=== PATIENT | female | born 1960 | race Caucasian/White ===

== ENCOUNTER 2022-03-08 14:48 | Outpatient (CLI) | payer MEDICARE, MEDICAID ==
[~2022-03-08 14:48] MED LIST: ACET-2119 PO; ASCO-139 PO; ASPI-1265 PO; BUSP5TAB3 PO; CALC-937 PO; CLOP75TA34 PO; DICL100G30 TOP; DOCUSATE PO; FAMO20TA10 PO; GLUC-95 PO; GOLO PO; HYDR28CR14 TOP; INSU300I3 SQ; LEVO200T8 PO; LEVO5TAB13 PO; LOSA50TA64 PO; MAGN500C4 PO; METF-438 PO; MILN100T PO; Melatonin PO; NOVLG SQ; NYSTATIN CREAM TOP; OMEP40CA21 PO; ONDA4TAB12 PO; ROSU20TA31 PO; SENN-145 PO; SIME80TA15 PO; TRAM50TA2 PO; [UNRECOGNIZED DRUG - OTHER] PO
[2022-03-08] MEDS ORDERED: iohexol 350MG/ML 100ml bottle IV ONE (15:01)
== END 2022-03-08 23:59 | disposition home or self-care (01) ==
LOC: RAD 14:48
PROVIDERS: ATTEND Surgery
DX: I65.23 Occlusion and stenosis of bilateral carotid arteries (principal)
CPT/HCPCS: 70498; J3490; Q9967

== ENCOUNTER 2023-09-26 11:16 | Day surgery (SDC) | payer MEDICARE, MEDICAID ==
[2023-09-21 10:02] LABS: BASOPHILS % (AUTO) 0.4 % (0-1); EOSINOPHILS # (AUTO) 0.1 X10'3 (0-0.9); EOSINOPHILS % (AUTO) 1.5 % (0-6); HEMATOCRIT 36.2 % (35.0-45.0); HEMOGLOBIN 12.4 g/dl (12.0-16.0); LYMPHOCYTES # (AUTO) 1.6 X10'3 (1.1-4.8); LYMPHOCYTES % (AUTO) 21.6 % (21-51); MEAN CORPUSCULAR HEMOGLOBIN 32.4 PG (27.0-31.0); MEAN CORPUSCULAR HGB CONC 34.3 g/dL (33.0-36.5); MEAN CORPUSCULAR VOLUME 94.5 FL (78-98); MEAN PLATELET VOLUME 7.6 FL (7.4-10.4); MONOCYTES # (AUTO) 0.6 X10'3 (0-0.9); NEUTROPHILS # (AUTO) 5.1 X10'3 (1.8-7.7); NEUTROPHILS % (AUTO) 68.5 % (42-75); PLATELET COUNT 261 X10'3 (140-440); RED BLOOD COUNT 3.83 X10'6 (4.20-5.60); RED CELL DISTRIBUTION WIDTH 14.5 % (11.5-14.5); WHITE BLOOD COUNT 7.5 X10'3 (4.5-11.0)
[2023-09-21 10:22] LABS: APTT 28 SECONDS (22-32); INR 0.9 INR; PROTHROMBIN TIME 10.2 SECONDS (9.0-12.0)
[2023-09-21 10:25] LABS: ALBUMIN 3.8 G/DL (3.4-5.0); ANION GAP 9 (8-16); BLOOD UREA NITROGEN 15 MG/DL (7-18); BUN/CREATININE RATIO 17.2 (10.0-20.0); CALCIUM 9.7 MG/DL (8.5-10.1); CHLORIDE 98 MMOL/L (99-107); CREATININE 0.87 MG/DL (0.40-0.90); GLUCOSE 104 MG/DL (70-104); POTASSIUM 4.2 MMOL/L (3.5-5.1); SODIUM 132 MMOL/L (135-145); TOTAL CARBON DIOXIDE 25.2 MMOL/L (24-32); eGFR 66 ML/MIN
[2023-09-26] VITALS (10 sets, daily range): BP systolic 95–164; BP diastolic 45–72; PULSE 58–64; RESP 12–18; TEMP 98.3; O2SAT 97–100
[~2023-09-26] VITALS: Ht 167.6 cm; Wt 120.9 kg
[~2023-09-26 11:16] MED LIST changes: -DICL100G30 TOP; +DICL100G59 TOP; +ONDA-243 PO; -ONDA4TAB12 PO; -ROSU20TA31 PO; +ROSU20TA73 PO; -SENN-145 PO; +SENN-367 PO
[2023-09-26] MEDS ORDERED: normal saline 1,000 ML IV SCH (11:35)
[2023-09-26] MEDS ORDERED: diphenhydrAMINE 25mg capsule PO PRN (11:35)
[2023-09-26] MEDS ORDERED: LORazepam 0.5 MG tablet PO PRN (11:35)
[2023-09-26] MEDS ORDERED: MONT-40 PO (12:03)
[2023-09-26] MEDS ORDERED: ADAL40PE5 SQ (12:03)
[2023-09-26] MEDS ORDERED: METH2.5T55 PO (12:03)
[2023-09-26] MEDS ORDERED: BIOT10006 PO (12:03)
[2023-09-26] MEDS ORDERED: TIRZ7.5P SQ (12:03)
[2023-09-26] MEDS ORDERED: ESTR1VAG10 VG (12:03)
[2023-09-26] MEDS ORDERED: ROSU40TA71 PO (12:03)
[2023-09-26] MEDS ORDERED: CHOL20002 PO (12:03)
[2023-09-26] MEDS ORDERED: HYDR12.55 PO (12:03)
[2023-09-26] MEDS ORDERED: CYAN100087 PO (12:03)
[2023-09-26] MEDS ORDERED: verapamil 2.5 mg/ml inj IV ONE (13:29)
[2023-09-26] MEDS ORDERED: LIDOcaine 1% (10mg/ml) 2ml vial ONE (13:29)
[2023-09-26] MEDS ORDERED: heparin 1,000unit/ml 10ml vial 10 ML ONE (13:30)
[2023-09-26] MEDS ORDERED: iohexol 350MG/ML 100ml bottle IV ONE ×2 (13:30→15:44)
[2023-09-26] MEDS ORDERED: fentaNYL/PF 50MCG/1 ML 2ML syringe ONE (13:30)
[2023-09-26] MEDS ORDERED: midazolam 1 mg/ML 2ml injection ONE ×3 (13:30→15:25)
[2023-09-26] MEDS ORDERED: aspirin 325mg tablet ONE (16:31)
[2023-09-26] MEDS ORDERED: clopidogrel 300mg tablet ONE (16:31)
[2023-09-26] MEDS ORDERED: CLOP-32 PO (16:59)
== END 2023-09-26 18:35 | disposition home or self-care (01) ==
LOC: SSTAY O 11:16
PROVIDERS: ATTEND Student in an Organized Health Care Education/Training Program
DX: I65.21 Occlusion and stenosis of right carotid artery (principal); I10 Essential (primary) hypertension; I25.10 Atherosclerotic heart disease of native coronary artery without angina pectoris; E11.9 Type 2 diabetes mellitus without complications; E78.00 Pure hypercholesterolemia, unspecified; Z79.899 Other long term (current) drug therapy; Z79.82 Long term (current) use of aspirin; Z79.890 Hormone replacement therapy; Z91.012 Allergy to eggs; Z88.8 Allergy status to other drugs, medicaments and biological substances
CPT/HCPCS: 36222; 36415; 37236; 80048; 85025; 85610; 85730; 93005; 99152; 99153; A6258; A6402; C1725; C1751; C1769; C1876; C1887; C1894; J1644; J2001; J2250; J3010; J3490; J7030; Q9967; Z7610; 36225; 37217; 75625; 75710; 76937

== ENCOUNTER 2024-02-26 10:13 | Outpatient (CLI) | payer MEDICARE, MEDICAID ==
[2024-02-16 11:23] LABS: BASOPHILS % (AUTO) 0.6 % (0-1); EOSINOPHILS # (AUTO) 0.2 X10'3 (0-0.9); HEMATOCRIT 33.8 % (35.0-45.0); HEMOGLOBIN 11.9 g/dl (12.0-16.0); LYMPHOCYTES # (AUTO) 1.4 X10'3 (1.1-4.8); LYMPHOCYTES % (AUTO) 25.8 % (21-51); MEAN CORPUSCULAR HEMOGLOBIN 32.2 PG (27.0-31.0); MEAN PLATELET VOLUME 7.3 FL (7.4-10.4); MONOCYTES # (AUTO) 0.5 X10'3 (0-0.9); MONOCYTES % (AUTO) 9.3 % (2-12); NEUTROPHILS # (AUTO) 3.3 X10'3 (1.8-7.7); NEUTROPHILS % (AUTO) 61.3 % (42-75); PLATELET COUNT 232 X10'3 (140-440); RED BLOOD COUNT 3.68 X10'6 (4.20-5.60); RED CELL DISTRIBUTION WIDTH 15.8 % (11.5-14.5); WHITE BLOOD COUNT 5.4 X10'3 (4.5-11.0)
[2024-02-16 11:39] LABS: ALANINE AMINOTRANSFERASE 39 U/L (12-78); ALBUMIN 3.8 G/DL (3.4-5.0); ALBUMIN/GLOBULIN RATIO 1.2 (1.1-1.5); ALKALINE PHOSPHATASE 65 IU/L (46-116); ANION GAP 10 (8-16); ASPARTATE AMINO TRANSFERASE 22 U/L (10-37); BILIRUBIN,TOTAL 0.5 MG/DL (0.1-1.0); BLOOD UREA NITROGEN 17 MG/DL (7-18); CHLORIDE 98 MMOL/L (99-107); CREATININE 0.85 MG/DL (0.40-0.90); GLUCOSE 97 MG/DL (70-104); POTASSIUM 3.9 MMOL/L (3.5-5.1); SODIUM 131 MMOL/L (135-145); TOTAL CARBON DIOXIDE 23.3 MMOL/L (24-32); TOTAL PROTEIN 7.1 G/DL (6.4-8.2); eGFR 68 ML/MIN
[~2024-02-26 10:13] MED LIST changes: +ADAL40PE5 SQ; +BIOT10006 PO; -BUSP5TAB3 PO; -CALC-937 PO; +CHOL20002 PO; +CYAN100087 PO; -DICL100G59 TOP; -DOCUSATE PO; +ESTR1VAG10 VG; -FAMO20TA10 PO; +FOLIC ACID; -GLUC-95 PO; +HYDR12.55 PO; -HYDR28CR14 TOP; -LEVO5TAB13 PO; -MAGN500C4 PO; -METF-438 PO; +METH2.5T55 PO; -MILN100T PO; +MONT-40 PO; -Melatonin PO; -NYSTATIN CREAM TOP; -OMEP40CA21 PO; -ONDA-243 PO; -ROSU20TA73 PO; +ROSU40TA89 PO; +TIRZ7.5P SQ; -TRAM50TA2 PO; -[UNRECOGNIZED DRUG - OTHER] PO
== END 2024-02-26 23:59 | disposition home or self-care (01) ==
LOC: LAB 10:13
PROVIDERS: ATTEND Orthopaedic Surgery Hand Surgery
DX: M79.641 Pain in right hand (principal); M65.341 Trigger finger, right ring finger; M65.321 Trigger finger, right index finger; M65.351 Trigger finger, right little finger; M18.11 Unilateral primary osteoarthritis of first carpometacarpal joint, right hand; F17.210 Nicotine dependence, cigarettes, uncomplicated; E78.5 Hyperlipidemia, unspecified; I25.10 Atherosclerotic heart disease of native coronary artery without angina pectoris; M65.311 Trigger thumb, right thumb; Z01.818 Encounter for other preprocedural examination; Z88.8 Allergy status to other drugs, medicaments and biological substances; Z91.012 Allergy to eggs; M17.11 Unilateral primary osteoarthritis, right knee; M06.9 Rheumatoid arthritis, unspecified; G62.9 Polyneuropathy, unspecified; E66.01 Morbid (severe) obesity due to excess calories; Z98.890 Other specified postprocedural states; Z79.899 Other long term (current) drug therapy
CPT/HCPCS: 36415; 80053; 85025

== ENCOUNTER 2024-03-25 05:34 | Day surgery (SDC) | payer MEDICARE, MEDICAID ==
[2024-03-19 11:55] LABS: BASOPHILS % (AUTO) 0.6 % (0-1); EOSINOPHILS # (AUTO) 0.2 X10'3 (0-0.9); EOSINOPHILS % (AUTO) 2.6 % (0-6); LYMPHOCYTES # (AUTO) 1.4 X10'3 (1.1-4.8); LYMPHOCYTES % (AUTO) 24.3 % (21-51); MEAN CORPUSCULAR HEMOGLOBIN 31.1 PG (27.0-31.0); MEAN CORPUSCULAR HGB CONC 34.1 g/dL (33.0-36.5); MEAN PLATELET VOLUME 7.2 FL (7.4-10.4); MONOCYTES # (AUTO) 0.7 X10'3 (0-0.9); MONOCYTES % (AUTO) 11.6 % (2-12); NEUTROPHILS # (AUTO) 3.6 X10'3 (1.8-7.7); NEUTROPHILS % (AUTO) 60.9 % (42-75); PRE OP HEMATOCRIT 37.4 % (35.0-45.0); PRE OP HEMOGLOBIN 12.8 g/dL (12.0-16.0); PRE OP PLATELET COUNT 242 X10'3 (140-440); PRE OP WHITE BLOOD COUNT 5.9 10'3 (4.8-10.8); RED BLOOD COUNT 4.11 X10'6 (4.20-5.60); RED CELL DISTRIBUTION WIDTH 15.5 % (11.5-14.5)
[2024-03-19 12:25] LABS: ALBUMIN 4.1 G/DL (3.4-5.0); ALKALINE PHOSPHATASE 83 IU/L (46-116); BLOOD UREA NITROGEN 15 MG/DL (7-18); BUN/CREATININE RATIO 20.5 (10.0-20.0); CALCIUM 9.9 MG/DL (8.5-10.1); CHLORIDE 96 MMOL/L (99-107); CREATININE 0.73 MG/DL (0.40-0.90); PRE OP ALT 51 U/L (30-65); PRE OP ANION GAP 10 (8-16); PRE OP AST 29 U/L (10-37); PRE OP BILIRUB, TOTAL 0.5 MG/DL (0.0-1.0); PRE OP GLUCOSE 80 MG/DL (70-104); PRE OP POTASSIUM 4.2 MMOL/L (3.4-5.1); PRE OP SODIUM 132 MMOL/L (135-145); TOTAL PROTEIN 8.3 G/DL (6.4-8.2); eGFR 81 ML/MIN
[~2024-03-25] VITALS: Ht 167.6 cm; Wt 116.1 kg
[2024-03-25] VITALS (7 sets, daily range): BP systolic 123–143; BP diastolic 52–68; PULSE 55–60; RESP 12–16; TEMP 97.9; O2SAT 95–98
[2024-03-25] MEDS: ceFAZolin 2gm in dextrose, iso 50 ML IV ONE (05:30)
[2024-03-25] MEDS: famotidine 20mg tablet PO ONE (06:21)
[2024-03-25] MEDS: ringers solution, lacted 1,000 ML IV SCH (06:21)
[2024-03-25] MEDS ORDERED: BUPIVAcaine/PF 2.5mg/ml (0.25%) 10ml vial ONE (06:47)
[2024-03-25] MEDS ORDERED: LIDOcaine 2% (20mg/ml) 5ml vial ONE (06:47)
[2024-03-25] MEDS ORDERED: ondansetron/PF 4mg/2ml inj IV PRN (07:30)
[2024-03-25] MEDS ORDERED: morphine 2 MG/ML inj. syringe IV PRN (07:30)
[2024-03-25] MEDS ORDERED: proCHLORperazine 10 MG/2 ml inj IV PRN (07:30)
[2024-03-25] MEDS ORDERED: ringers solution, lacted 1,000 ML IV SCH (07:30)
[2024-03-25] MEDS ORDERED: meperidine/PF 25mg/ml syringe IV PRN ×3 (07:30)
[2024-03-25] MEDS ORDERED: morphine 4 MG/ML inj SYRINge IV PRN (07:30)
[2024-03-25] MEDS ORDERED: fentaNYL/PF 50MCG/1 ML 2ML syringe ONE (07:46)
[2024-03-25] MEDS ORDERED: midazolam 1 mg/ML 2ml injection ONE ×2 (07:46→08:04)
[2024-03-25] MEDS ORDERED: propofol inj 20 ML IV ONE (08:04)
== END 2024-03-25 09:04 | disposition home or self-care (01) ==
LOC: PAS 05:34
PROVIDERS: ATTEND Orthopaedic Surgery Hand Surgery
DX: M65.311 Trigger thumb, right thumb (principal); M65.321 Trigger finger, right index finger; M65.331 Trigger finger, right middle finger; M65.341 Trigger finger, right ring finger; M65.351 Trigger finger, right little finger; M17.12 Unilateral primary osteoarthritis, left knee; I10 Essential (primary) hypertension; E11.10 Type 2 diabetes mellitus with ketoacidosis without coma; E78.5 Hyperlipidemia, unspecified; E07.9 Disorder of thyroid, unspecified; I25.10 Atherosclerotic heart disease of native coronary artery without angina pectoris; Z98.51 Tubal ligation status; Z90.49 Acquired absence of other specified parts of digestive tract; Z90.89 Acquired absence of other organs; Z87.891 Personal history of nicotine dependence; Z98.890 Other specified postprocedural states; Z88.1 Allergy status to other antibiotic agents; Z88.8 Allergy status to other drugs, medicaments and biological substances; Z91.018 Allergy to other foods; Z91.012 Allergy to eggs; Z79.890 Hormone replacement therapy; Z79.899 Other long term (current) drug therapy
CPT/HCPCS: 26055; 36415; 80053; 82948; 85025; A4215; A6449; J0690; J2003; J2250; J2704; J3010; J3490; J7030; J7120; Z7506; Z7512

== ENCOUNTER 2024-08-01 09:31 | Outpatient (CLI) | payer MEDICARE, MEDICAID ==
[~2024-08-01 09:31] MED LIST changes: -CYAN100087 PO; +CYAN50005 PO; +FOLI1TAB27 PO; -FOLIC ACID
--- NOTE | 2024-08-01 14:17 | RADIOLOGY REPORT ---
MRI LUMBAR SPINE CLINICAL HISTORY: LOW BACK PAIN, UNSPECIFIED TECHNIQUE: Multi planar, multi sequence MR images of the lumbar spine without intravenous contrast. Comparison: None FINDINGS: There is a chronic wedge compression deformity of the L2 vertebral body with approximately 40% height loss. There has been prior vertebroplasty with bone cement seen centrally in the vertebral body. The re is no significant posterior retropulsion. The remaining lumbar vertebral bodies demonstrate normal height and marrow signal. The conus terminates at an appropriate level and demonstrates normal caliber and signal. The sagittal alignment is maintained.. There are multilevel degenerative disc changes with disc desiccation and d isc space narrowing. There is multilevel facet arthropathy. At L1-L2 there is mild disc bulge and facet arthropathy. There is no canal or significant foraminal stenosis. At L2-L3 there is diffuse disc bulge and bilateral facet arthropathy. There is mild central canal trinh nosis. There is mild bilateral neural foraminal stenosis. At L3-L4 there is disc bulge and bilateral facet arthropathy. There is mild central canal stenosis. T here is moderate bilateral neural foraminal stenosis. At L4-L5 there is disc bulge and bilateral facet arthropathy, [id number]-right. There is mild central canal stenosis. There is moderate to severe left and moderate right neural foraminal stenosi s. At L5-S1 there is disc bulge with superimposed 4 mm central disc protrusion. There is moderate bilat eral facet arthropathy. There is moderate central canal stenosis. There is moderate to severe bilater al neural foraminal stenosis, [id number]-left. IMPRESSION: 1. Multilevel degenerative changes in the lumbar spine as described by levels above, worst at L5-S1. 2. Chronic wedge compression deformity of the L2 vertebral body status post vertebroplasty. HS:Y
== END 2024-08-01 23:59 | disposition home or self-care (01) ==
LOC: MRI02 09:31
PROVIDERS: ATTEND Family Medicine Sports Medicine
DX: S32.020D Wedge compression fracture of second lumbar vertebra, subsequent encounter for fracture with routine healing (principal); S83.207D Unspecified tear of unspecified meniscus, current injury, left knee, subsequent encounter; E66.9 Obesity, unspecified; M25.562 Pain in left knee; E11.9 Type 2 diabetes mellitus without complications; M25.561 Pain in right knee; I01.1 Acute rheumatic endocarditis; M17.12 Unilateral primary osteoarthritis, left knee; M17.11 Unilateral primary osteoarthritis, right knee; M65.30 Trigger finger, unspecified finger; M54.50 Low back pain, unspecified; M54.16 Radiculopathy, lumbar region; M47.816 Spondylosis without myelopathy or radiculopathy, lumbar region; M47.27 Other spondylosis with radiculopathy, lumbosacral region; M48.07 Spinal stenosis, lumbosacral region; M51.17 Intervertebral disc disorders with radiculopathy, lumbosacral region; M53.3 Sacrococcygeal disorders, not elsewhere classified; X58.XXXD Exposure to other specified factors, subsequent encounter
CPT/HCPCS: 72148

== ENCOUNTER 2024-12-02 14:02 | Day surgery (SDC) | payer MEDICARE, MEDICAID ==
[2024-11-29 10:03] LABS: MEAN PLATELET VOLUME 8.0 FL (7.4-10.4); RED CELL DISTRIBUTION WIDTH 15.9 % (11.5-14.5)
[2024-11-29 10:17] LABS: APTT 27 SECONDS (22-32); INR 1.0 INR
[2024-11-29 10:26] LABS: CHOL/HDL RATIO 1.7 (0.00-4.99); CREATININE 0.81 MG/DL (0.40-0.90); LDL CHOLESTEROL 37 MG/DL (50-100); TOTAL CARBON DIOXIDE 27.0 MMOL/L (24-32); eGFR 71 ML/MIN
[~2024-12-02] VITALS: Ht 167.6 cm; Wt 108.4 kg
[2024-12-02] VITALS (11 sets, daily range): BP systolic 103–202; BP diastolic 52–81; PULSE 56–69; RESP 13–16; TEMP 98.8; O2SAT 96–99
--- NOTE | 2024-12-02 14:25 | ELECTROCARDIOGRAPH REPORT ---
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 STACY Hamilton Measurements Intervals [place] Rate: 59 P: 45 MI: 165 QRS: -5 QRSD: 100 T: 56 QT: 420 QTc: 416 Interpretive Statements Sinus rhythm Abnormal R-wave progression, early transition Electronically Signed On 12-02-2024 15:43:[address] STACY Hamilton Please click the below link to view image of tracing.
[2024-12-02] MEDS ORDERED: LIDOcaine 1% 30ml preserv. free vial ONE (16:07)
[2024-12-02] MEDS ORDERED: heparin 1,000unit/ml 10ml vial 10 ML ONE (16:08)
[2024-12-02] MEDS ORDERED: phenylephrine 10mg/ml inj. ONE (16:08)
[2024-12-02] MEDS ORDERED: atropine 0.1mg/ml 10ml syringe ONE (16:08)
[2024-12-02] MEDS ORDERED: DOPamine 400mg/D5W 250ml 0 ML IV ONE (16:09)
[2024-12-02] MEDS ORDERED: FLUT15.815 BOTHNARES (16:12)
[2024-12-02] MEDS ORDERED: POTA99CA PO (16:12)
[2024-12-02] MEDS ORDERED: dextrose 50%-water 50ml dispensing syringe IV ONE (17:00)
[2024-12-02] MEDS ORDERED: hydrALAZINE 20mg/ml inj. ONE (17:15)
[2024-12-02] MEDS ORDERED: midazolam 1 mg/ML 2ml injection ONE (17:35)
[2024-12-02] MEDS ORDERED: HYDROcodone/acetaminophen 5mg/325mg tablet PO PRN (18:15)
[2024-12-02] MEDS ORDERED: ondansetron/PF 4mg/2ml inj IV PRN (18:15)
[2024-12-02] MEDS ORDERED: HYDROcodone/acetaminophen 10/325mg tab PO PRN (18:15)
[2024-12-02] MEDS ORDERED: OXAZEpam 15mg capsule PO PRN (18:15)
--- NOTE | 2024-12-08 20:53 | CARDIOLOGY REPORT ---
DATE OF SERVICE: 12/02/2024 DICTATING PHYSICIAN: Fritz Allen MD DATE OF SERVICE: 12/02/2024 PROCEDURES: * Access to the right common femoral artery. * Selective catheter placement in the ascending aorta and aortic arch angiography. * Selective catheter placement in the left common carotid artery and selective left common carotid artery angiography. * Conscious sedation monitoring time for 30 minutes. INDICATION: High-grade stenosis. PHYSICIAN: Fritz Allen MD DESCRIPTION OF PROCEDURE: After informed consent was obtained, a 6-[place] sheath was inserted into the right femoral artery that was later exchanged for an 8-[place] sheath. Using a pigtail catheter, the catheter was advanced into the ascending aorta and aortic arch angiography was performed. Next, using a diagnostic left internal mammary artery catheter, the catheter was manipulated to engage the left common carotid artery and selective angiography was performed. Thereafter, attempt at crossing the high-grade ostial stenosis was made using both a right internal mammary artery catheter as well as a JR4 catheter without success. FINDINGS: The patient has a type 2 aortic arch with mild calcification of the arch. The innominate artery has a previously deployed stent. The left common carotid artery has a bovine takeoff. Ostial extensively calcified stenosis, 99%, at a tortuous angle was noted. Tremendous difficulty was encountered in trying to engage the common carotid artery. IMPRESSION: * High-grade, extensively calcified 99% stenosis of the left common carotid artery. * Unable to cross the lesion and advance the wire. Medical management at this point. Treatment options will be discussed with the patient. Fritz Allen MD TID: [id number] RECEIPT: [id number] CASANDRA/MARU
== END 2024-12-02 20:07 | disposition home or self-care (01) ==
LOC: SSTAY O 14:02
PROVIDERS: ATTEND Student in an Organized Health Care Education/Training Program
DX: I65.22 Occlusion and stenosis of left carotid artery (principal); I10 Essential (primary) hypertension; I25.10 Atherosclerotic heart disease of native coronary artery without angina pectoris; E11.9 Type 2 diabetes mellitus without complications; E78.00 Pure hypercholesterolemia, unspecified; I35.0 Nonrheumatic aortic (valve) stenosis; Z79.82 Long term (current) use of aspirin; Z79.899 Other long term (current) drug therapy; Z91.0120 Allergy to eggs, unspecified
CPT/HCPCS: 36222; 36415; 80048; 80061; 82948; 83695; 85025; 85610; 85730; 93005; 99152; 99153; A6258; C1751; C1760; C1769; J0360; J1171; J1644; J2003; J2371; J3490; J7030; Q0163; Q9967; Z7610; 93567; J0461; J1265; J2250